=== PATIENT | female | born 1935 | race Caucasian/White ===

== ENCOUNTER 2016-06-18 15:35 | Emergency (ER) | payer MEDICARE, MEDICAID ==
[~2016-06-18] VITALS: Ht 152.4 cm; Wt 52.7 kg
[2016-06-18 15:57] VITALS: BP 136/75
== END 2016-06-18 18:04 | disposition home or self-care (01) ==
LOC: ED 17:50
DX: S62.617A Displaced fracture of proximal phalanx of left little finger, initial encounter for closed fracture (principal); J44.9 Chronic obstructive pulmonary disease, unspecified; J45.909 Unspecified asthma, uncomplicated; W01.0XXA Fall on same level from slipping, tripping and stumbling without subsequent striking against object, initial encounter; Y93.89 Activity, other specified; Y99.8 Other external cause status; Y92.89 Other specified places as the place of occurrence of the external cause
CPT/HCPCS: 29125; 99284

== ENCOUNTER → 2017-07-21 | Outpatient (CLI) | payer OTHER, MEDICAID ==
[~2017-07-21] MED LIST: ALBU0.63 NEB; ATOR20TA PO; CALC1TAB2 PO; CHOL20002 PO; ERGO500017 PO; FLAX340P PO; FLUT1BLS PO; GUAI-103 PO; LACT1CAP40 PO; LEVO100T5 PO; LISI-170 PO; MONT10TA9 PO; OXYCODONE PO; POLY17PO5 PO; POTA20TA6 PO; QUET25TA5 PO; TIOT18CA INH; VENL150C PO; VIT1CAPS42 PO
[2017-07-21 12:32] LABS: CHLORIDE 107 mmol/L (98-107)
[2017-07-21 12:39] LABS: ALANINE AMINOTRANSFERASE 38 U/L (12-78); ALBUMIN 3.6 g/dL (3.4-5.0); ALKALINE PHOSPHATASE 121 U/L (45-117); ANION GAP 4 mmol/L (5-15); BILIRUBIN,TOTAL 0.4 mg/dL (0.2-1.0); CALCIUM 9.3 mg/dL (8.5-10.1); CREATININE 0.59 mg/dL (0.55-1.02); TOTAL PROTEIN 7.6 g/dL (6.4-8.2)
== END | disposition home or self-care (01) ==
LOC: STAR 11:26
PROVIDERS: ATTEND Obstetrics & Gynecology Female Pelvic Medicine and Reconstructive Surgery
DX: Z01.818 Encounter for other preprocedural examination (principal); N39.3 Stress incontinence (female) (male); N81.10 Cystocele, unspecified; N81.6 Rectocele; R10.2 Pelvic and perineal pain
CPT/HCPCS: 36415; 80053; 93005

== ENCOUNTER 2019-04-14 12:58 | Outpatient (CLI) | payer MEDICARE, MEDICAID ==
[~2019-04-14 12:58] MED LIST changes: -CHOL20002 PO; +CHOL200052 PO; +MONT10TA11 PO; -MONT10TA9 PO
== END 2019-04-14 23:59 | disposition home or self-care (01) ==
LOC: RAD 12:58
PROVIDERS: ATTEND Family Medicine
DX: J44.9 Chronic obstructive pulmonary disease, unspecified (principal); R07.81 Pleurodynia
CPT/HCPCS: 71046